=== PATIENT | male | born 1950 | race Caucasian/White ===

== ENCOUNTER 2021-07-16 11:33 | Emergency (ER) | payer MEDICARE, SELFPAY ==
[2021-07-16 11:46] VITALS: BP 157/65; PULSE 58; RESP 16; TEMP 36.6; O2SAT 97
--- NOTE | 2021-07-16 12:06 | W.ED.GENAD ---
Discharge Plan Disposition Patient Disposition: HOME Condition: Stable Discharge Details Clinical Impression: Bilateral acute otitis media, Acute otitis externa of right ear Primary Care Provider: An,Local ED Provider: Sharmin Dennison Home Meds and New Rx's Prescriptions: New amoxicillin-pot clavulanate [Augmentin] 875-125 mg tablet 1 tab PO BID 7 Days Qty: 14 RF: 0 No Action multivitamin Tablet 1 tab PO DAILY RF: 0 clopidogrel [Plavix] 75 mg Tablet 75 mg PO DAILY RF: 0 omeprazole 40 mg Capsule,Delayed Release(Dr/Ec) 40 mg PO DAILY RF: 0 aspirin 81 mg Tablet 81 mg PO DAILY RF: 0 metoprolol succinate 25 mg Tablet Extended Release 24 Hr 50 mg PO DAILY RF: 0 lisinopril 40 mg Tablet 40 mg PO DAILY RF: 0 rosuvastatin [Crestor] 10 mg Tablet 10 mg PO DAILY RF: 0 Discharge Instructions Instructions: Otitis Externa (ED), Ear Infection (ED) Additional Instructions: Please take the Augmentin twice daily as directed. You were given the first dose here in the department. Use eardrops once a day over the next 3 to 5 days. Follow up with primary care provider in 3-5 days. Return to ED sooner if any worsening or concerns. Increase oral fluids. Please take Ibuprofen with food every 4-6 hours as needed for pain and swelling. No more swimming until resolution of symptoms and antibiotics. Discharge Data Discharge Date/Time-TO BE ENTERED AT DEPARTURE: 07/16/21 12:50 Medical Decision Making 71-year-old male presents to the ER with bilateral ear pain and increased double hearing. Recently was fitted for hearing aids. He went swimming on Thursday and pressure and pain began on Thursday. He did to ibuprofen prior to arrival. She does have a past medical history of hypertension, high cholesterol, coronary artery disease Plavix on a daily basis. On initial exam he does have cerumen impaction bilaterally. Does have some external ear canal swelling and tenderness on the right ear Bilateral ears were irrigated by staff software engineer. There is erythema bilaterally to the tympanic membranes. Patient placed on Augmentin and p.o. twice daily and given ofloxacin eardrops for right otitis externa. Discussed home care strict return instructions and follow-up. Patient and family verbalized understanding. HPI General Mode of arrival: ambulatory. Date/Time Provider Initiated Documentation: 07/16/21 11:33. Limitations to Documentation: no limitations and language barrier (Hard of hearing). Information obtained by: patient. HPI Narrative: 71-year-old male presents to the ER with bilateral ear pain and increased double hearing. Recently was fitted for hearing aids. He went swimming on Thursday and pressure and pain began on Thursday. He did to ibuprofen prior to arrival. She does have a past medical history of hypertension, high cholesterol, coronary artery disease Plavix on a daily basis. On initial exam he does have cerumen impaction bilaterally. Does have some external ear canal swelling and tenderness on the right ear Related Data Home Medications Medication Instructions Recorded Confirmed amoxicillin-pot clavulanate 1 tab PO BID 7 Days #14 tab 07/16/21 [Augmentin] aspirin 81 mg PO DAILY 07/16/21 07/16/21 clopidogrel [Plavix] 75 mg PO DAILY 07/16/21 07/16/21 lisinopril 40 mg PO DAILY 07/16/21 07/16/21 metoprolol succinate 50 mg PO DAILY 07/16/21 07/16/21 multivitamin 1 tab PO DAILY 07/16/21 07/16/21 omeprazole 40 mg PO DAILY 07/16/21 07/16/21 rosuvastatin [Crestor] 10 mg PO DAILY 07/16/21 07/16/21 Previous Rx's Medication Instructions Recorded amoxicillin-pot clavulanate 1 tab PO BID 7 Days #14 tab 07/16/21 [Augmentin] Allergies Allergy/AdvReac Type Severity Reaction Status Date / Time No Known Allergies Allergy Unverified 07/16/21 11:49 General Stated Complaint: EarProblem SERAFIN: 5 Review of Systems All systems reviewed & are unremarkable except as noted in HPI and below ENT Ears, Nose, Mouth, and Throat: Reports as per HPI, Reports abnormal hearing and Reports otalgia (biaterally) Neurologic Neurologic: Reports abnormal hearing [facility] Social History Smoking/Tobacco Use Status: Never Smoking risk assessment performed?: Yes Alcohol Intake: current Alcohol Intake frequency: 0-2 drinks per day Substance use type: does not use Exam HENMT Ears: external ear abnormal (Right EAC swollen, erythemic) pain with movement of external ear, hearing grossly impaired and unable to visualize TM Course Vital Signs Vital signs: Vital Signs Temperature 36.6 C 07/16/21 11:46 Pulse 58 L 07/16/21 11:46 Respiratory Rate 16 07/16/21 11:46 Blood Pressure 157/65 H 07/16/21 11:46 Pulse Oximetry 97 07/16/21 11:46 Temperature 36.6 C 07/16/21 11:46 Temperature Source Skin 07/16/21 11:46 Pulse 58 L 07/16/21 11:46 Respiratory Rate 16 07/16/21 11:46 Respiratory Effort Non-Labored 07/16/21 11:46 Blood Pressure 157/65 H 07/16/21 11:46 Blood Pressure Position Sitting 07/16/21 11:46 Pulse Oximetry 97 07/16/21 11:46 Oxygen Delivery Method Room Air 07/16/21 11:46 Oxygen Flow Rate 0 07/16/21 11:46 Pain Level 4 07/16/21 11:46
[2021-07-16] MEDS: Amoxicillin 875/Clav. 125 TAB PO (12:49)
[2021-07-16] MEDS: Ofloxacin 0.3% OTIC 5 ML BTL AU (12:49)
== END 2021-07-16 12:50 | disposition home or self-care (01) ==
PROVIDERS: Emergency Provider Registered Nurse Emergency
DX: H60.331 Swimmer's ear, right ear (principal); H66.93 Otitis media, unspecified, bilateral; H61.23 Impacted cerumen, bilateral
CPT/HCPCS: 69209; 99283